=== PATIENT | female | born 1970 | race Caucasian/White ===

== ENCOUNTER 2017-03-04 13:01 | Emergency (ER) | payer BC ==
[2017-03-04 13:22] VITALS: BP 131/69
--- NOTE | 2017-03-04 13:41 | UC ---
Complaint Female HPI - HPI Summary HPI Summary: Pain and burning with urination beginning about 7 days ago - History Of Current Complaint Chief Complaint: UCGeneralIllness Stated Complaint: UTI Time Seen by Provider: 03/04/17 13:09 Hx Obtained From: Patient Hx Last Menstrual Period: 02/18/17 ?: No Onset/Duration: Gradual Onset, Lasting Days - 7, Still Present, Worse Since - getting worse each day Timing: Constant Severity Initially: Mild Severity Currently: Moderate Pain Intensity: 5 Pain Scale Used: 0-10 Numeric Character: Burning Aggravating Factor(s): Urination Alleviating Factor(s): Nothing Associated Signs And Symptoms: Positive: Negative - Allergies/Home Medications Allergies/Adverse Reactions: Allergies Allergy/AdvReac Type Severity Reaction Status Date / Time No Known Allergies Allergy Verified 03/04/17 13:12 Home Medications: Home Medications Acetaminophen TAB* [Tylenol TAB*] 1,000 mg PO ONCE 03/04/17 [History Confirmed 03/04/17] PMH/Surg Hx/FS Hx/Imm Hx Previously Healthy: Yes Endocrine History Of: Denies: Diabetes, Thyroid Disease Cardiovascular History Of: Reports: Hypertension Denies: Cardiac Disorders Respiratory History Of: Denies: COPD, Asthma GI/ History Of: Denies: Ulcer Cancer History Of: Denies: Breast Cancer - Surgical History Surgical History: None - Family History Known Family History: Positive: None - Social History Occupation: Employed Full-time Lives: With Family Alcohol Use: None Substance Use Type: None Smoking Status (MU): Never Smoked Tobacco - Immunization History Most Recent Influenza Vaccination: never Review of Systems Constitutional: Fatigue Skin: Negative Eyes: Negative ENT: Negative Respiratory: Negative Cardiovascular: Negative Gastrointestinal: Abdominal Pain - supra pubic Genitourinary: Dysuria, Frequency, Urgency Motor: Negative Neurovascular: Negative Musculoskeletal: Negative Neurological: Negative Psychological: Negative All Other Systems Reviewed And Are Negative: Yes Physical Exam Triage Information Reviewed: Yes Appearance: Well-Appearing, No Pain Distress Vital Signs: Initial Vital Signs Temp 100.1 F 03/04/17 13:15 Pulse 108 03/04/17 13:15 Resp 18 03/04/17 13:15 BP 131/69 03/04/17 13:15 Pulse Ox 97 03/04/17 13:15 Vital Signs Reviewed: Yes Eye Exam: Normal Eyes: Positive: Conjunctiva Clear ENT Exam: Normal ENT: Positive: Normal ENT inspection, Hearing grossly normal, Pharynx normal. Negative: Nasal congestion, Nasal drainage, Tonsillar swelling, Tonsillar exudate, Trismus, Muffled/hoarse voice Dental Exam: Normal Neck exam: Normal Neck: Positive: Supple, Nontender, No Lymphadenopathy Respiratory Exam: Normal Respiratory: Positive: Chest non-tender, Lungs clear, Normal breath sounds, No respiratory distress, No accessory muscle use Cardiovascular Exam: Normal Cardiovascular: Positive: No Murmur, Pulses Normal, Brisk Capillary Refill, Tachycardia Abdominal Exam: Normal Abdomen Description: Positive: No Organomegaly, Soft, Other: - supra pubic discomfort. Negative: CVA Tenderness (R), CVA Tenderness (L) Bowel Sounds: Positive: Present Musculoskeletal Exam: Normal Musculoskeletal: Positive: Strength Intact, ROM Intact, No Edema Neurological Exam: Normal Neurological: Positive: Alert, Muscle Tone Normal Psychological Exam: Normal Psychological: Positive: Normal Response To Family Skin Exam: Normal Diagnostics - Laboratory Diagnostic Studies Completed/Ordered: ua postive for esterase and blood Complaint Female Dx - Course Course Of Treatment: Bactrim Ds 1 po bid for 3 days, pyridium prn for 2 days - Differential Dx/Diagnosis Differential Diagnosis/HQI/PQRI: Pelvic Inflammatory Disease, Renal Colic, Retained Foreign Body, Ureteral Stone, Urinary Tract Infection Provider Diagnoses: UTI Discharge - Discharge Plan Condition: Stable Disposition: HOME Prescriptions: Phenazopyridine TAB* [Pyridium 100 mg TAB*] 100 mg PO TID PRN #6 tab PRN Reason: urinary burning Sulfamethox/Trimethoprim DS* [Bactrim DS 800/160 TAB*] 1 tab PO BID #6 tab Patient Education Materials: Urinary Tract Infection in Women (ED) Forms: *Work Release Referrals: Jonathan YADAV,Papa Ernandez [Primary Care Provider] - If Needed
== END 2017-03-04 13:53 | disposition home or self-care (01) ==
LOC: UCEAST 13:01
DX: N39.0 Urinary tract infection, site not specified (principal)
CPT/HCPCS: 81003; 87077; 87086; 87186; 99212; G0463

== ENCOUNTER 2023-03-29 06:26 | Observation (INO) ==
[~2023-03-29 06:26] MED LIST: Buffered Lidocaine 1% SYRIN 1 ml INTRADERM ONE; Lactated Ringers 1000 ml BAG 1,000 ML IV SCH
[2023-03-29] MEDS ORDERED: ceFAZolin 2 GM in NS PREMIX 2 GM/100 ML BAG IVPB ONE (06:46)
[2023-03-29] MEDS ORDERED: Tranexamic Acid 1,000 MG in NS 0.9% 50 ML IV ONE (07:00)
[2023-03-29 07:16] LABS: Rapid COVID-19 Molecular Undetected (Undetected)
[2023-03-29] MEDS ORDERED: fentaNYL 100 mcg/2 ml 50 MCG/ML VIAL ONE (07:31)
[2023-03-29] MEDS ORDERED: Midazolam 2 mg/2 ml VIAL 1 mg/ml 2 ml VIAL (2 mg) ONE (07:31)
[2023-03-29] MEDS ORDERED: Phenylephrine IV 10 MG/ML 1 ml VIAL ONE (07:31)
[2023-03-29] MEDS ORDERED: Lidocaine 2% PF 5 ML VIAL ONE (07:31)
[2023-03-29] MEDS ORDERED: Propofol 10 MG/ML 20 ML BTL ONE ×2 (07:31→10:39)
[2023-03-29] MEDS ORDERED: ROPIVACAINE 5 MG/ML 30 ML BTL (0.5%) ONE (07:47)
[2023-03-29] MEDS ORDERED: Prochlorperazine 5 mg/ml 2 ml VIAL (10 mg) IV PRN (07:55)
[2023-03-29] MEDS ORDERED: Naloxone 0.4 mg VIAL 0.4 mg/ml 1 ml VIAL IV PRN (07:55)
[2023-03-29] MEDS ORDERED: fentaNYL 100 mcg/2 ml 50 MCG/ML VIAL IV PRN (07:55)
[2023-03-29] MEDS ORDERED: Dexamethasone IV 4 MG/ML VIAL 1 ml VIAL ONE (09:24)
[2023-03-29] MEDS ORDERED: Ondansetron 4 mg VIAL 2 MG/ML 2 ml VIAL ONE (09:24)
[2023-03-29] MEDS ORDERED: Glycopyrrolate IV 0.2 MG/ML 1 ML VIAL ONE ×3 (10:20→11:22)
[2023-03-29] MEDS ORDERED: Lactulose 30 ml UDC PO PRN (11:55)
[2023-03-29] MEDS ORDERED: Magnesium Hydroxide LIQ 30 ML UDC PO PRN (11:55)
[2023-03-29] MEDS ORDERED: Ondansetron 4 mg VIAL 2 MG/ML 2 ml VIAL IV PRN (11:55)
[2023-03-29] MEDS ORDERED: Ondansetron ODT 4 mg TAB 4 MG TAB PO PRN (11:55)
[2023-03-29] MEDS ORDERED: Morphine 2 MG/ML SYRINGE IV PRN (11:55)
[2023-03-29] MEDS ORDERED: ceFAZolin 1 GM ADVAN 1 GM in NS 0.9% 50 ML 50 ML IVPB SCH (12:00)
[2023-03-29] MEDS: ceFAZolin 1 GM in Dextrose 1 GM/50 ML BAG IVPB SCH (18:12)
[2023-03-29] MEDS: Magnesium Hydroxide LIQ 30 ML UDC PO SCH (20:07)
[2023-03-29] MEDS ORDERED: Amphetamine MIXED SALT 10mgTAB PO SCH (21:00)
[2023-03-30] MEDS: ceFAZolin 1 GM in Dextrose 1 GM/50 ML BAG IVPB SCH ×2 (01:06→10:12)
[2023-03-30] MEDS: Lactated Ringers 1000 ml BAG 1,000 ML IV SCH ×2 (01:10→05:30)
[2023-03-30 07:07] LABS: Calcium 8.7 mg/dL (8.6-10.3); Creatinine, Serum 0.81 mg/dL (0.51-0.95); Potassium 4.3 mmol/L (3.5-5.0); eGFR CKD-EPI 86.2 (>60)
[2023-03-30] MEDS: Magnesium Hydroxide LIQ 30 ML UDC PO SCH (07:54)
[2023-03-30 07:55] LABS: Hematocrit 35.9 % (35-45); Hemoglobin 12.7 g/dL (11.5-14.3); Mean Platelet Volume 8.6 fL (7.5-11.2); Platelet Count 196 10^3/uL (150-450)
[2023-03-30] MEDS ORDERED: Vitamin THERAPEUTIC TAB PO SCH (09:00)
[2023-03-30 10:07] VITALS: BP 119/69
== END 2023-03-30 12:30 | disposition home or self-care (01) ==
LOC: OR 06:26 → SSU 06:26 → EDSTATUS 07:30
PROVIDERS: ADMIT Orthopaedic Surgery Adult Reconstructive Orthopaedic Surgery; ATTEND Orthopaedic Surgery Adult Reconstructive Orthopaedic Surgery